=== PATIENT | female | born 1975 | race Caucasian/White ===

== ENCOUNTER 2024-08-19 01:45 | Emergency (ER) | payer MEDICAID, OTHER ==
[~2024-08-19] VITALS: Ht 162.6 cm; Wt 71.0 kg
[2024-08-19 02:04] VITALS: BP 117/87; PULSE 64; RESP 16; TEMP 37; O2SAT 100
[2024-08-19] MEDS: IBUPROFEN 600MG TABLET PO STA (03:07)
[2024-08-19 03:46] LABS: BASOPHILS % 0.8 % (0.0-2.0); EOSINOPHILS % 3.1 % (0.0-5.0); HEMATOCRIT. 45.9 % (36.0-48.0); HEMOGLOBIN. 15.2 g/dL (12.0-16.0); LYMPHOCYTES % 26.6 % (20.0-50.0); MEAN CORPUSCULAR HEMOGLOBIN 30.9 pg (28.0-32.0); MEAN CORPUSCULAR HGB CONC 33.1 g/dL (31.0-37.0); MEAN CORPUSCULAR VOLUME 93.5 fL (81.0-99.0); MEAN PLATELET VOLUME 7.8 fl (7.4-10.4); MONOCYTES % 10.7 % (2.0-8.0); NEUTROPHILS % 58.8 % (40.0-76.0); PLATELET 233 x1000/uL (130-400); RED BLOOD CELL COUNT 4.91 mill/uL (4.2-5.4); RED CELL DISTRIBUTION WIDTH 13.9 % (11.6-14.6); WHITE BLOOD COUNT 6.9 x1000/uL (4.5-11.0)
[2024-08-19 03:56] LABS: CHLORIDE 108 mEq/L (98-107); POTASSIUM 3.7 mEq/L (3.5-5.1); SODIUM 143 mEq/L (136-145)
[2024-08-19 03:57] LABS: CALCIUM 9.7 mg/dL (8.7-10.4); CARBON DIOXIDE 27 mEq/L (21-32)
[2024-08-19 04:02] LABS: CREATININE 0.6 mg/dL (0.6-1.0); GLUCOSE 139 mg/dL (70-105); UREA NITROGEN BLOOD 9 mg/dL (9-23)
[2024-08-19 04:03] LABS: HCG SCREEN NEGATIVE
[2024-08-19] MEDS ORDERED: IBUP-2029 MT (05:52)
[2024-08-19] MEDS ORDERED: METH-653 MT (05:52)
[2024-08-19] MEDS ORDERED: IOHEXOL-300 100 ML BOTTLE ONE (08:06)
== END 2024-08-19 08:20 | disposition home or self-care (01) ==
LOC: ER 02:01
DX: R07.89 Other chest pain (principal); M25.511 Pain in right shoulder; M54.9 Dorsalgia, unspecified; M54.2 Cervicalgia
CPT/HCPCS: 80048; 84703; 85025; 36415; 70450; 71260; 72125; 74177; 99285; Q9967; Z7610